=== PATIENT | male | born 1985 | race Caucasian/White ===

== ENCOUNTER 2017-06-11 01:17 | Emergency (ER) | payer SELFPAY ==
[~2017-06-11] VITALS: Ht 154.9 cm; Wt 62.0 kg
[2017-06-11] MEDS ORDERED: IBUPROFEN 600MG TABLET PO ONE (03:45)
[2017-06-11] MEDS ORDERED: LIDOCAINE HCL 1%/EPI 1:200,000 30 ML VIAL MC ONE (03:45)
[2017-06-11] MEDS ORDERED: TETANUS, DIPHTHERIA, PERTUSSIS VAC/PF 0.5ML (>7YR OLD) IM ONE (03:45)
[2017-06-11] MEDS ORDERED: ONDANSETRON 4MG ODT PO ONE (03:45)
[2017-06-11] MEDS ORDERED: MAGNESIUM/ALUMINUM HYDROXIDE/SIMETHICONE 30ML UDC PO ONE (03:45)
[2017-06-11] MEDS ORDERED: BACITRACIN ZINC OINT UDPKT TOP ONE ×2 (03:45)
[2017-06-11] MEDS ORDERED: SODIUM CHLORIDE 0.9% 1,000 ML IV ONE (05:20)
[2017-06-11 06:21] LABS: BASOPHILS % 0.6 % (0.0-2.0); EOSINOPHILS % 1.1 % (0.0-5.0); HEMATOCRIT. 48.7 % (42.0-52.0); HEMOGLOBIN. 16.4 g/dL (14.0-18.0); LYMPHOCYTES % 28.7 % (20.0-50.0); MEAN CORPUSCULAR HEMOGLOBIN 31.1 pg (28.0-32.0); MEAN CORPUSCULAR VOLUME 92.4 fL (80.0-94.0); MEAN PLATELET VOLUME 8.4 fl (7.4-10.4); NEUTROPHILS % 61.6 % (40.0-76.0); PLATELET 290 x1000/uL (130-400); RED BLOOD CELL COUNT 5.27 mill/uL (4.7-6.1); RED CELL DISTRIBUTION WIDTH 13.3 % (11.6-14.6)
[2017-06-11 06:32] LABS: CLARITY URINE CLEAR (CLEAR); COLOR URINE YELLOW (YELLOW); KETONES URINE TRACE (NEGATIVE); LEUKOCYTE ESTERASE URINE NEGATIVE (NEGATIVE); NITRITE URINE NEGATIVE (NEGATIVE); OCCULT BLOOD URINE NEGATIVE (NEGATIVE); PROTEIN URINE NEGATIVE (NEGATIVE); SPECIFIC GRAVITY URINE 1.017 (1.005-1.030); UROBILINOGEN URINE 0.2 E.U./dL (0.2-1.0)
[2017-06-11 06:40] VITALS: BP 103/68
[2017-06-11 07:25] LABS: AMMONIA 37 uMol/L (<32); CARBON DIOXIDE 31 mEq/L (21-32); CHLORIDE 99 mEq/L (98-107); ETHANOL BLOOD < 10 mg/dL
[2017-06-11 08:32] LABS: *AMPHETAMINES SCREEN URINE PRESUMTIVE POSITIVE (NEGATIVE); *BARBITURATES SCREEN URINE NEGATIVE (NEGATIVE); *BENZODIAZEPINES SCREEN URINE NEGATIVE (NEGATIVE); *COCAINE SCREEN URINE NEGATIVE (NEGATIVE); CANNABINOID URINE SCREEN NEGATIVE (NEGATIVE); METHADONE URINE SCREEN NEGATIVE (NEGATIVE); OPIATES URINE SCREEN NEGATIVE (NEGATIVE); PHENCYCLIDINE URINE SCREEN NEGATIVE (NEGATIVE)
== END 2017-06-11 09:47 | disposition home or self-care (01) ==
LOC: ER 01:17
DX: S01.81XA Laceration without foreign body of other part of head, initial encounter (principal); S01.112A Laceration without foreign body of left eyelid and periocular area, initial encounter; F17.200 Nicotine dependence, unspecified, uncomplicated; F15.10 Other stimulant abuse, uncomplicated; Y00.XXXA Assault by blunt object, initial encounter; Y93.89 Activity, other specified; Y92.018 Other place in single-family (private) house as the place of occurrence of the external cause
CPT/HCPCS: 36415; 70450; 80053; 80305; 81003; 82140; 82962; 85025; 90471; 90715; 96360; 99285; G0482; J7030; Q0162; X7700; Z7610

== ENCOUNTER 2017-06-17 16:51 | Emergency (ER) | payer SELFPAY ==
[~2017-06-17] VITALS: Ht 154.9 cm; Wt 62.0 kg
[2017-06-17 17:27] VITALS: BP 102/67
== END 2017-06-17 20:42 | disposition left against medical advice (07) ==
LOC: ER 19:12
DX: Z53.21 Procedure and treatment not carried out due to patient leaving prior to being seen by health care provider (principal); Z48.02 Encounter for removal of sutures

== ENCOUNTER 2017-06-18 16:55 | Emergency (ER) | payer SELFPAY ==
[~2017-06-18] VITALS: Ht 154.9 cm; Wt 62.0 kg
[2017-06-18 16:58] VITALS: BP 91/53
== END 2017-06-18 20:56 | disposition left against medical advice (07) ==
LOC: ER 18:01
DX: Z53.21 Procedure and treatment not carried out due to patient leaving prior to being seen by health care provider (principal)